=== PATIENT | male | born 1995 | race Caucasian/White ===

== ENCOUNTER 2021-02-17 10:15 | Emergency (ER) | payer BC, OTHER ==
[~2021-02-17] VITALS: Ht 172.7 cm; Wt 108.3 kg
[2021-02-17 10:16] VITALS: BP 142/79
[2021-02-17] MEDS ORDERED: CEFTRIAXONE 1,000 MG IM ONE (10:30)
[2021-02-17] MEDS ORDERED: CEFTRIAXONE 1,000 MG ONE (10:37)
--- NOTE | 2021-02-17 11:53 | NUR ---
Patient given discharge instructions and they have confirmed that they understand the instructions. Patient ambulatory with steady gait.
== END 2021-02-17 11:54 | disposition home or self-care (01) ==
LOC: ED 10:47
DX: Z20.2 Contact with and (suspected) exposure to infections with a predominantly sexual mode of transmission (principal); R30.0 Dysuria; F17.210 Nicotine dependence, cigarettes, uncomplicated
CPT/HCPCS: 87491; 87591; 96372; 99283; 99406; J0696